=== PATIENT | female | born 2000 | race Caucasian/White ===

== ENCOUNTER 2019-01-25 09:52 | Outpatient (CLI) | payer OTHER | END 2019-01-25 23:59 | disposition home or self-care (01) | LOC: CFH 09:52 | PROVIDERS: ATTEND Radiology Diagnostic Radiology | DX: N63.20 Unspecified lump in the left breast, unspecified quadrant (principal) ==

== ENCOUNTER 2020-03-22 20:34 | Emergency (ER) | payer OTHER ==
[~2020-03-22] VITALS: Ht 162.6 cm; Wt 51.2 kg
[2020-03-22] MEDS ORDERED: IBUPROFEN 800 MG TABLET ONE (21:01)
--- NOTE | 2020-03-22 21:02 | NUR ---
FIELD MARKETING DIRECTOR: IBUPROFEN GIVEN IN TRIAGE.
[2020-03-22] MEDS ORDERED: IBUPROFEN 800 MG TABLET PO ONE (21:30)
--- NOTE | 2020-03-22 22:03 | NUR ---
FEATURE WRITER: PT. TO ROOM FROM LOBBY AT THIS TIME.
--- NOTE | 2020-03-22 22:17 | NUR ---
PT GIVEN IBUPROFEN BY MEDIA JOB TITLES.
[2020-03-22] MEDS ORDERED: LIDOCAINE 1%-EPI 1:100K, 20ML ONE (22:46)
[2020-03-22 22:57] VITALS: BP 114/72
--- NOTE | 2020-03-22 22:58 | NUR ---
PIV PLACED. IV ABX RUNNING PER OCT. ASIFO PULLED FOR PROVIDER ADMIN.
[2020-03-22] MEDS ORDERED: LIDOCAINE 1%, 20ML INFIL ONE (23:00)
[2020-03-22] MEDS ORDERED: AMPICILLIN/SULBACTAM 3 GM in SODIUM CHLORIDE 0.9% 100 ML IV ONE (23:00)
--- NOTE | 2020-03-22 23:10 | NUR ---
REPORT GIVEN TO QIANA DUTTON.
[2020-03-22] MEDS ORDERED: LIDOCAINE-MPF 1%, 5ML ONE (23:14)
== END 2020-03-23 01:03 | disposition home or self-care (01) ==
LOC: ED 22:23
DX: S61.253A Open bite of left middle finger without damage to nail, initial encounter (principal); S61.255A Open bite of left ring finger without damage to nail, initial encounter; S61.213A Laceration without foreign body of left middle finger without damage to nail, initial encounter; S61.215A Laceration without foreign body of left ring finger without damage to nail, initial encounter; W54.0XXA Bitten by dog, initial encounter; Y93.89 Activity, other specified; Y92.89 Other specified places as the place of occurrence of the external cause; Y99.8 Other external cause status
CPT/HCPCS: 12044; 73130; 96365; 99284; J0295